=== PATIENT | male | born 1955 | race Caucasian/White ===

== ENCOUNTER 2019-01-12 21:10 | Inpatient (IN) | payer MEDICARE, MEDICAID ==
[~2019-01-12] VITALS: Ht 157.5 cm; Wt 46.7 kg
--- NOTE | 2019-01-12 21:36 | NUR ---
pt arrived by ems. darden in place on arrival. per report, pt's status has been changed from dnr to full code. awaiting son's arrival to confirm code status change.
--- NOTE | 2019-01-12 21:53 | NUR ---
pt changed to 3 liters nc. danielson notified. pt satting at 97% on 3 liters. pt tolerating well.
--- NOTE | 2019-01-12 21:56 | NUR ---
report from other facility included that pt was agitated there, pulling out 2 ivs. pt given a total of 1.5mg of ativan around 1930. pt also given a liter bolus of ns, metoprolol and lasix. report from patience owen #[phone] at [facility].
[2019-01-12] MEDS ORDERED: FLUT1BLS3 INH (21:59)
[2019-01-12] MEDS ORDERED: CEPH-572 PO (21:59)
[2019-01-12] MEDS ORDERED: ASPI81TA52 PO (21:59)
[2019-01-12] MEDS ORDERED: IPRA3AMP9 IH (21:59)
[2019-01-12] MEDS ORDERED: ACET-2144 PO (21:59)
[2019-01-12] MEDS ORDERED: BISA10SU60 RC (21:59)
[2019-01-12] MEDS ORDERED: AMIO200T61 PO (21:59)
[2019-01-12] MEDS ORDERED: HYDR-4353 PO (22:07)
[2019-01-12] MEDS ORDERED: MULT1CAP44 PO (22:07)
[2019-01-12] MEDS ORDERED: MONT10TA24 PO (22:07)
[2019-01-12] MEDS ORDERED: HYDR-3965 PO (22:07)
[2019-01-12] MEDS ORDERED: FURO-150 PO (22:07)
[2019-01-12] MEDS ORDERED: LACT10SO PO (22:07)
[2019-01-12] MEDS ORDERED: PANT-47 PO (22:07)
[2019-01-12] MEDS ORDERED: SPIR50TA5 PO (22:08)
[2019-01-12] MEDS ORDERED: THIA100T66 PO (22:10)
[2019-01-12] MEDS ORDERED: ONDA4TAB6 PO (22:11)
--- NOTE | 2019-01-12 22:13 | NUR ---
PT ARRIVES WITH POLST FOR FULL CODE. [facility] NOTES MEDS GIVEN THERE ) : METOPROLOL 2.5 MG IV AT 1300 AND 1500; LASIX 40 MG IV @ 1500, METOPROLOL 2.5 MG IV @ 1640; ATIVAN 0.5 MG @ 1640 AND 1800; 1 LITER NS, LEVOFLOXACIN 500 MG @ 1050. PT WAS AFIB RVR AT 1000 WITH HR 135. MED REC COMPLETED. PT AWAITING HOSPITALIST.
[2019-01-12] MEDS ORDERED: mag hydrox/Alum hydrox/simeth 30ml oral suspension PO PRN (23:10)
[2019-01-12] MEDS ORDERED: acetaminophen 325mg tablet PO PRN (23:10)
[2019-01-12] MEDS ORDERED: HYDROcodone/acetaminophen 5mg/325mg tablet PO PRN (23:10)
[2019-01-12] MEDS ORDERED: morphine 2 MG/ML inj. syringe IV PRN (23:10)
[2019-01-12] MEDS ORDERED: ondansetron/PF 4mg/2ml inj IV PRN (23:10)
[2019-01-12] MEDS ORDERED: magnesium hydroxide 30ml (MOM) UD suspension PO PRN (23:10)
[2019-01-12] MEDS: dextrose 5%-1/2 normal saline 1,000 ML IV SCH (23:40)
[2019-01-12 23:58] LABS: PARTIAL THROMBOPLASTIN TIME 28 SECONDS (22-32)
[2019-01-13] VITALS (21 sets, daily range): BP systolic 93–160; BP diastolic 33–98
[2019-01-13] MEDS ORDERED: CefTRIAXone/D5W-Rocephin 1gm 50 ML IV SCH
--- NOTE | 2019-01-13 02:20 | NUR ---
Received patient report from ALISSA Can in ED.
--- NOTE | 2019-01-13 02:35 | NUR ---
Pt arrived from ED via gurney, assumed patient care.
[2019-01-13] MEDS ORDERED: albuterol 2.5 MG/3 ML nebule NEB PRN (05:05)
--- NOTE | 2019-01-13 06:22 | NUR ---
Patient report given, questions answered and plan of care reviewed with ALISSA Wasserman.
[2019-01-13 06:30] LABS: BASOPHILS # (AUTO) 0.1 X10'3 (0-0.2); BASOPHILS % (AUTO) 0.7 % (0-1); EOSINOPHILS % (AUTO) 0.4 % (0-6); HEMATOCRIT 34.5 % (42.0-52.0); HEMOGLOBIN 11.6 g/dl (14.0-17.9); LYMPHOCYTES # (AUTO) 0.5 X10'3 (1.1-4.8); MEAN CORPUSCULAR HEMOGLOBIN 32.4 PG (27.0-31.0); MEAN CORPUSCULAR HGB CONC 33.8 g/dL (33.0-36.5); MEAN CORPUSCULAR VOLUME 95.9 FL (78-98); MEAN PLATELET VOLUME 7.4 FL (7.4-10.4); MONOCYTES # (AUTO) 0.9 X10'3 (0-0.9); MONOCYTES % (AUTO) 11.5 % (2-12); NEUTROPHILS # (AUTO) 6.1 X10'3 (1.8-7.7); NEUTROPHILS % (AUTO) 81.4 % (42-75); PLATELET COUNT 78 X10'3 (140-440); RED BLOOD COUNT 3.59 X10'6 (4.70-6.10); RED CELL DISTRIBUTION WIDTH 15.6 % (11.5-14.5); WHITE BLOOD COUNT 7.5 X10'3 (4.5-11.0)
[2019-01-13] MEDS ORDERED: ipratropium/albuterol 3ml nebule IH PRN (06:30)
[2019-01-13] MEDS ORDERED: HYDROcodone/acetaminophen 5mg/325mg tablet PO PRN (06:30)
[2019-01-13] MEDS ORDERED: bisacodyl 10mg suppository rectal RC PRN (06:30)
[2019-01-13] MEDS ORDERED: HYDROcodone/acetaminophen 10/325mg tab PO PRN (06:30)
[2019-01-13 06:48] LABS: ALANINE AMINOTRANSFERASE 52 U/L (12-78); ALBUMIN 2.3 G/DL (3.4-5.0); ALBUMIN/GLOBULIN RATIO 0.5 (1.1-1.5); ALKALINE PHOSPHATASE 114 IU/L (46-116); ANION GAP 6 (8-16); ASPARTATE AMINO TRANSFERASE 78 U/L (10-37); BILIRUBIN,TOTAL 1.2 MG/DL (0.1-1.0); BLOOD UREA NITROGEN 30 MG/DL (7-18); BUN/CREATININE RATIO 34.5 (5.4-32.0); CALCIUM 9.8 MG/DL (8.5-10.1); CHLORIDE 106 MMOL/L (99-107); CREATININE 0.87 MG/DL (0.60-1.10); GLUCOSE 137 MG/DL (70-104); POTASSIUM 4.1 MMOL/L (3.5-5.1); SODIUM 141 MMOL/L (135-145); TOTAL CARBON DIOXIDE 28.6 MMOL/L (24-32); TOTAL PROTEIN 6.6 G/DL (6.4-8.2); eGFR 88 ML/MIN
[2019-01-13] MEDS: aspirin 81mg tablet.DR PO SCH (08:00)
[2019-01-13] MEDS: budesonide 0.5mg/2ml UD nebule IH SCH ×2 (08:25→20:04)
[2019-01-13] MEDS: albuterol 2.5 MG/3 ML nebule NEB SCH ×3 (08:25→20:04)
--- NOTE | 2019-01-13 10:28 | NUR ---
Page Sent PAGER ID: [phone] MESSAGE: PT IN ROOM 4021A CANDEKIREGAN CONVERTED TO AFIB WITH RATE IN THE 140-150S. BP 93/50. PLEASE ADVISE. THANK YOU. ODILIA MAXWELL [id number]
[2019-01-13] MEDS ORDERED: digoxin 250mcg/ml 2ml ampule IV STA (10:43)
[2019-01-13] MEDS ORDERED: digoxin 250mcg/ml 2ml ampule IV ONE ×2 (10:50→11:10)
[2019-01-13] MEDS: furosemide 20MG tablet PO SCH (11:18)
[2019-01-13] MEDS: lactulose 20gm/30ml cup PO SCH ×3 (11:18→21:00)
[2019-01-13] MEDS: spironolactone 50 MG tablet PO SCH (11:18)
[2019-01-13] MEDS: pantoprazole 40mg Tablet.DR PO SCH (11:18)
[2019-01-13] MEDS: amiodarone 200mg tablet PO SCH (11:18)
[2019-01-13] MEDS: multivitamins, therapeutics tablet PO SCH (11:19)
[2019-01-13] MEDS: dextrose 5%-1/2 normal saline 1,000 ML IV SCH ×2 (11:21→23:07)
[2019-01-13 11:26] LABS: ABG BASE EXCESS 1.3 mmol/L (-2.0-3.0); ABG HCO3 23.9 mmol/L (22.0-26.0); ABG OXYGEN SATURATION 93.2 % (95-98); ABG PCO2 (T) 31.5 mmHg (35.0-45.0); ABG PH (T) 7.498 (7.350-7.450); ABG PO2 (T) 67.1 mmHg (83-108); FCOHb 0.6 % (0.5-1.5); FMetHb 0.3 % (0.3-1.12); FO2Hb 92.4 % (94-100); TOTAL HEMOGLOBIN 12.1 G/dl (14.0-17.9)
--- NOTE | 2019-01-13 11:36 | NUR ---
DR HI ORDERED TWO DOSES OF DIGOXIN 125 MCG. MEDICATION GIVEN. PATIENT STILL IN AFIB RATE OF 150S. AWARE. TRANSFER ORDERS TO TELE RM [id number].
--- NOTE | 2019-01-13 12:12 | NUR ---
Patient arrived on the floor via bed. Patient was transferred onto new bed. Patient has a tele in place, PIV with D51/2NS at 20ml/hr, mittens on to both hands, O2 at 3L NC,SpO2 onto right earlobe. Patient has had his v/s completed, been oriented to the room, and call light within reach. Patient is confused and mumbles without clear speech. Will continue to monitor patient.
--- NOTE | 2019-01-13 12:24 | NUR ---
Called Dr. Soto regarding anson woods. to place orders.
--- NOTE | 2019-01-13 12:34 | NUR ---
Dr. Soto placed orders for amio without a bolus. Called to clarify and MD does not want a bolus at this time. Will administer as ordered. Will continue to monitor patient.
[2019-01-13] MEDS: amiodarone/D5 360MG/200ML BAG 200 ML IV SCH ×2 (12:52→19:06)
[2019-01-13] MEDS: VANCOMYCIN 750MG IV in NS 250 ML IV SCH (14:33)
[2019-01-13 16:42] LABS: GLUCOSE,BODY FLUID 119 MG/DL; LDH,BODY FLUID 78 U/L
[2019-01-13 16:56] LABS: TOTAL PROTEIN,BODY FLUID < 2.0 G/DL
[2019-01-13 17:04] LABS: BF RBC COUNT 820 /CU MM; BF WBC COUNT 465 /CU MM (0-1000); BFAPPEAR HAZY; BFCOLOR YELLOW; BFVOLUME 45 ML; LYMPHOCYTES,BODY FLUID 10 %; MONOCYTES,BODY FLUID 52 %; NEUTROPHILS,BODY FLUID 38 %
[2019-01-13 17:05] LABS: BF MESOTHELIAL CELLS MODERATE
[2019-01-13 17:06] LABS: OTHER CELLS,BODY FLUID MACROPHAGES
--- NOTE | 2019-01-13 17:59 | NUR ---
Orientee documentation: I have reviewed and agree with all interventions, assessments performed and documented by Lisa MAXWELL. Orientee Medication Administration: For this medication-pass time frame, all medication were reviewed, dispensed, administered and documented per hospital policy by Lisa MAXWELL.
--- NOTE | 2019-01-13 18:35 | NUR ---
Problems reprioritized. Patient report given, questions answered & plan of care reviewed with Eduar MAXWELL and Lul MAXWELL. Patient confused, no change.
--- NOTE | 2019-01-13 18:44 | NUR ---
Patient in room PCU 3013. I have received report from Yris MAXWELL and Lisa MAXWELL and had the opportunity to ask questions and assume patient care.
[2019-01-13] MEDS: piperacillin/tazo 3.375gm/50ml 50 ML IV SCH (19:07)
[2019-01-13] MEDS: montelukast 10mg tablet PO SCH (21:00)
--- NOTE | 2019-01-13 21:50 | NUR ---
Call to Dr. Chaney, informed him of pts NPO status, darden catheter from outside facility, pts neurologic condition, and respiratory status. Received order from Dr. Chaney: NT suction, ABG, hold all PO medications, and okay to continue darden catheter.
[2019-01-13 22:45] LABS: ABG BASE EXCESS 1.8 mmol/L (-2.0-3.0); ABG HCO3 25.1 mmol/L (22.0-26.0); ABG OXYGEN SATURATION 92.8 % (95-98); ABG PCO2 (T) 34.3 mmHg (35.0-45.0); ABG PH (T) 7.481 (7.350-7.450); ABG PO2 (T) 63.2 mmHg (83-108); FCOHb 0.4 % (0.5-1.5); FLOW 3 L/min; FO2Hb 92.4 % (94-100); PATIENT TEMPERATURE 36.7; RESPIRATORY RATE (OBSERVED) 26 b/min; TOTAL HEMOGLOBIN 12.3 G/dl (14.0-17.9)
[2019-01-14] VITALS (13 sets, daily range): BP systolic 127–159; BP diastolic 53–90
[2019-01-14] MEDS: VANCOMYCIN 750MG IV in NS 250 ML IV SCH ×3 (00:17→22:05)
[2019-01-14] MEDS: piperacillin/tazo 3.375gm/50ml 50 ML IV SCH ×3 (02:26→16:15)
[2019-01-14] MEDS: amiodarone/D5 360MG/200ML BAG 200 ML IV SCH ×4 (04:17→16:42)
--- NOTE | 2019-01-14 06:08 | NUR ---
Problems reprioritized. Patient report given, questions answered & plan of care reviewed with Yris MAXWELL and Lisa MAXWELL.
--- NOTE | 2019-01-14 06:08 | NUR ---
Patient in room PCU 3013. I have received report from Mahendra RN and Lul RN, and had the opportunity to ask questions and assume patient care. Patient is awake at this time with amio and IVF infusing as ordered. Will continue to monitor patient.
[2019-01-14 06:22] LABS: ALANINE AMINOTRANSFERASE 43 U/L (12-78); ALBUMIN 2.2 G/DL (3.4-5.0); ALBUMIN/GLOBULIN RATIO 0.5 (1.1-1.5); ALKALINE PHOSPHATASE 116 IU/L (46-116); ANION GAP 9 (8-16); ASPARTATE AMINO TRANSFERASE 73 U/L (10-37); BILIRUBIN,TOTAL 1.2 MG/DL (0.1-1.0); BLOOD UREA NITROGEN 25 MG/DL (7-18); BUN/CREATININE RATIO 36.2 (5.4-32.0); CALCIUM 8.2 MG/DL (8.5-10.1); CHLORIDE 107 MMOL/L (99-107); CREATININE 0.69 MG/DL (0.60-1.10); GLUCOSE 118 MG/DL (70-104); POTASSIUM 3.9 MMOL/L (3.5-5.1); SODIUM 140 MMOL/L (135-145); TOTAL CARBON DIOXIDE 23.9 MMOL/L (24-32); TOTAL PROTEIN 6.6 G/DL (6.4-8.2); eGFR > 90 ML/MIN
--- NOTE | 2019-01-14 06:24 | NUR ---
Orientee documentation: I have reviewed and agree with all interventions, assessments performed and documented by Lul MAXWELL.
[2019-01-14] MEDS: budesonide 0.5mg/2ml UD nebule IH SCH ×2 (06:54→19:15)
[2019-01-14] MEDS: albuterol 2.5 MG/3 ML nebule NEB SCH ×4 (06:54→19:15)
[2019-01-14 07:52] LABS: BASOPHILS % (AUTO) 0.2 % (0-1); EOSINOPHILS # (AUTO) 0.1 X10'3 (0-0.9); EOSINOPHILS % (AUTO) 0.6 % (0-6); HEMATOCRIT 35.2 % (42.0-52.0); HEMOGLOBIN 11.7 g/dl (14.0-17.9); LYMPHOCYTES # (AUTO) 0.5 X10'3 (1.1-4.8); LYMPHOCYTES % (AUTO) 6.3 % (21-51); MEAN CORPUSCULAR HEMOGLOBIN 31.9 PG (27.0-31.0); MEAN CORPUSCULAR HGB CONC 33.3 g/dL (33.0-36.5); MEAN CORPUSCULAR VOLUME 95.9 FL (78-98); MEAN PLATELET VOLUME 7.2 FL (7.4-10.4); MONOCYTES # (AUTO) 0.8 X10'3 (0-0.9); MONOCYTES % (AUTO) 9.2 % (2-12); NEUTROPHILS # (AUTO) 7.2 X10'3 (1.8-7.7); NEUTROPHILS % (AUTO) 83.7 % (42-75); PLATELET COUNT 95 X10'3 (140-440); RED BLOOD COUNT 3.67 X10'6 (4.70-6.10); RED CELL DISTRIBUTION WIDTH 15.6 % (11.5-14.5); WHITE BLOOD COUNT 8.6 X10'3 (4.5-11.0)
[2019-01-14] MEDS: lactulose 20gm/30ml cup PO SCH ×3 (08:00→22:01)
[2019-01-14] MEDS: aspirin 81mg tablet.DR PO SCH (08:00)
[2019-01-14] MEDS: amiodarone 200mg tablet PO SCH (08:00)
[2019-01-14] MEDS: pantoprazole 40mg Tablet.DR PO SCH (08:00)
[2019-01-14] MEDS: multivitamins, therapeutics tablet PO SCH (08:00)
[2019-01-14] MEDS: furosemide 20MG tablet PO SCH (08:00)
[2019-01-14] MEDS: spironolactone 50 MG tablet PO SCH (08:00)
[2019-01-14] MEDS: dextrose 5%-1/2 normal saline 1,000 ML IV SCH ×3 (09:10→19:53)
--- NOTE | 2019-01-14 10:58 | NUR ---
Talked with Dr. Soto regarding patients breathing (gurgling, O2 WNL), no gag reflux with deep suctioning. New order: CXR single view. Will continue to monitor the patient.
--- NOTE | 2019-01-14 15:25 | NUR ---
Malnutrition consult: Pt admit w/ PNA possibly aspiration-related, s/p R thoracentesis for large pleural effusion -1900ml. Pt remains NPO per SP BSS w/ ALOC AOx0 currently; possibly dementia per EMR. Current scaled wt good given age and no prior wt hx; pt not appropriate for hx at this time. Sumeet 11; no edema/wounds. At this time severe weakness only malnutrition criteria and pt does not meet minimum malnutrition criteria at this time. Will continue to monitor. Addendum: 01/14/19 at [address] Amended: Links added.
--- NOTE | 2019-01-14 18:10 | NUR ---
Problems reprioritized. Patient report given, questions answered & plan of care reviewed with Mahendra MAXWELL and Lul MAXWELL. Patient has no complaints at this time.
--- NOTE | 2019-01-14 18:24 | NUR ---
Patient in room PCU 3013. I have received report from Yris MAXWELL and Lisa MAXWELL and had the opportunity to ask questions and assume patient care.
[2019-01-14] MEDS: montelukast 10mg tablet PO SCH (22:01)
[2019-01-14] MEDS ORDERED: VANCOMYCIN LEVEL IV ONE (22:30)
[2019-01-15] VITALS (20 sets, daily range): BP systolic 94–197; BP diastolic 49–91
[2019-01-15] MEDS: piperacillin/tazo 3.375gm/50ml 50 ML IV SCH ×3 (00:10→17:20)
[2019-01-15 02:10] LABS: BASOPHILS # (AUTO) 0.1 X10'3 (0-0.2); BASOPHILS % (AUTO) 0.7 % (0-1); EOSINOPHILS # (AUTO) 0.1 X10'3 (0-0.9); HEMOGLOBIN 12.3 g/dl (14.0-17.9); LYMPHOCYTES # (AUTO) 0.5 X10'3 (1.1-4.8); LYMPHOCYTES % (AUTO) 3.9 % (21-51); MONOCYTES # (AUTO) 1.3 X10'3 (0-0.9); MONOCYTES % (AUTO) 10.6 % (2-12)
[2019-01-15 02:12] LABS: EOSINOPHILS % (AUTO) 0.6 % (0-6); HEMATOCRIT 36.5 % (42.0-52.0); MEAN CORPUSCULAR HEMOGLOBIN 31.8 PG (27.0-31.0); MEAN CORPUSCULAR HGB CONC 33.7 g/dL (33.0-36.5); MEAN CORPUSCULAR VOLUME 94.2 FL (78-98); NEUTROPHILS # (AUTO) 10.6 X10'3 (1.8-7.7); NEUTROPHILS % (AUTO) 84.2 % (42-75); RED BLOOD COUNT 3.87 X10'6 (4.70-6.10); RED CELL DISTRIBUTION WIDTH 15.5 % (11.5-14.5); WHITE BLOOD COUNT 12.6 X10'3 (4.5-11.0)
[2019-01-15 02:18] LABS: ALANINE AMINOTRANSFERASE 42 U/L (12-78); ALBUMIN 2.2 G/DL (3.4-5.0); ALBUMIN/GLOBULIN RATIO 0.5 (1.1-1.5); ALKALINE PHOSPHATASE 119 IU/L (46-116); ANION GAP 6 (8-16); ASPARTATE AMINO TRANSFERASE 68 U/L (10-37); BILIRUBIN,TOTAL 1.4 MG/DL (0.1-1.0); BLOOD UREA NITROGEN 22 MG/DL (7-18); BUN/CREATININE RATIO 28.2 (5.4-32.0); CALCIUM 8.6 MG/DL (8.5-10.1); CHLORIDE 106 MMOL/L (99-107); CREATININE 0.78 MG/DL (0.60-1.10); GLUCOSE 115 MG/DL (70-104); POTASSIUM 3.6 MMOL/L (3.5-5.1); SODIUM 138 MMOL/L (135-145); TOTAL CARBON DIOXIDE 26.4 MMOL/L (24-32); TOTAL PROTEIN 6.7 G/DL (6.4-8.2); eGFR > 90 ML/MIN
[2019-01-15 03:17] LABS: MEAN PLATELET VOLUME 7.1 FL (7.4-10.4); PLATELET COUNT 113 X10'3 (140-440)
[2019-01-15] MEDS: amiodarone/D5 360MG/200ML BAG 200 ML IV SCH ×4 (04:35→15:27)
--- NOTE | 2019-01-15 05:54 | NUR ---
Orientee documentation: I have reviewed and agree with all interventions, assessments performed and documented by Lul MAXWELL.
[2019-01-15] MEDS: albuterol 2.5 MG/3 ML nebule NEB SCH ×4 (07:00→19:16)
[2019-01-15] MEDS: aspirin 81mg tablet.DR PO SCH (08:00)
[2019-01-15] MEDS: multivitamins, therapeutics tablet PO SCH (08:00)
[2019-01-15] MEDS: spironolactone 50 MG tablet PO SCH (08:00)
[2019-01-15] MEDS: furosemide 20MG tablet PO SCH (08:00)
[2019-01-15] MEDS: budesonide 0.5mg/2ml UD nebule IH SCH ×2 (08:04→19:16)
[2019-01-15] MEDS: dextrose 5%-1/2 normal saline 1,000 ML IV SCH (08:07)
--- NOTE | 2019-01-15 09:40 | NUR ---
Called and spoke with Dr. Soto. Informed her of the patients ineffective breathing pattern (RR 27-32), labored/grunting breathing, patients pitting edema of 3+ to bilateral feet, 2+ right hand, and edema to the right hand. Informed her today as well as yesterday of the patients absent gag reflex. New order for ABG and BiPap. Paged RT.
[2019-01-15] MEDS ORDERED: potassium Cl 20 mEq/100mL bag IV ONE (09:50)
[2019-01-15] MEDS ORDERED: furosemide 40mg/4ml inj IV ONE ×2 (09:50→12:25)
--- NOTE | 2019-01-15 10:00 | NUR ---
Spoke with Graciela Palm NP regarding patients condition. New order for Lasix 40 mg PIV now, stop the gtt and K+ PIV for the patient given. Will continue to monitor the patient.
[2019-01-15] MEDS ORDERED: potassium Cl 20mEq/100mL bag 100 ML IV ONE (10:05)
[2019-01-15 10:06] LABS: ABG BASE EXCESS 0.2 mmol/L (-2.0-3.0); ABG HCO3 25.8 mmol/L (22.0-26.0); ABG OXYGEN SATURATION 95.1 % (95-98); ABG PCO2 (T) 45.3 mmHg (35.0-45.0); ABG PH (T) 7.373 (7.350-7.450); ABG PO2 (T) 79.7 mmHg (83-108); FCOHb 0.3 % (0.5-1.5); FLOW 4 L/min; FMetHb 0.1 % (0.3-1.12); FO2Hb 94.7 % (94-100); TOTAL HEMOGLOBIN 12.9 G/dl (14.0-17.9)
[2019-01-15] MEDS ORDERED: potassium CL 10mEq/100ml bag 100 ML IV ONE ×2 (10:10→11:30)
--- NOTE | 2019-01-15 10:20 | NUR ---
Dr. Soto on the floor and has had the opportunity to examine the patient. She has requested the medical records from [facility] and [facility]. Dr. Soto to talk with the patient. New order DC IVF.
[2019-01-15] MEDS ORDERED: VANCOMYCIN LEVEL IV ONE (10:30)
--- NOTE | 2019-01-15 11:00 | NUR ---
Medical records have been received and given to Dr. Soto.
--- NOTE | 2019-01-15 12:15 | NUR ---
Problems reprioritized. Patient report given, questions answered & plan of care reviewed with Alexis, RN in CICU. Patient to be transfered to the CICU once the room is ready. Dr. Olson at the patients bedside, discussing the patients care with Oskar (son of patient.)
[2019-01-15] MEDS: VANCOMYCIN 750MG IV in NS 250 ML IV SCH (12:27)
--- NOTE | 2019-01-15 12:50 | NUR ---
Pt transferred from PCU for resp distress. Pt in ICU bed & on monitor. Amioadrone & IVABX running. Pt placed on bipap at 30% FiO2.
--- NOTE | 2019-01-15 13:03 | NUR ---
received pt from PCU placed on bedside monitor, on bipap son at bedside
--- NOTE | 2019-01-15 14:30 | NUR ---
ENGINE ROOM HELPER did not administer IV K+. Pt does not have a PICC line for administration
[2019-01-15] MEDS ORDERED: digoxin 250mcg/ml 2ml ampule IV ONE (14:45)
[2019-01-15] MEDS: diltiazem-NS 100mg/100ml 100 ML IV SCH (15:35)
--- NOTE | 2019-01-15 18:30 | NUR ---
Patient in room CICU 2006. I have received report from Art RN, and had the opportunity to ask questions and assume patient care.
[2019-01-15] MEDS: lactobacillus rhamnosus 10,000 MMU CELLS/CAPSULE PO SCH (20:00)
[2019-01-15] MEDS: montelukast 10mg tablet PO SCH (21:00)
--- NOTE | 2019-01-15 21:25 | NUR ---
Cardizem gtt turned off d/t decreasing BP/ PACKAGE CHECKER Helen made aware. Will continue to monitor.
[2019-01-15] MEDS: vancomycin/NS 1 GM ADD-VANTAGE 250 ML IV SCH (22:51)
[2019-01-16] VITALS (25 sets, daily range): BP systolic 97–151; BP diastolic 49–90
[2019-01-16] MEDS: piperacillin/tazo 3.375gm/50ml 50 ML IV SCH ×3 (00:42→17:24)
[2019-01-16] MEDS: amiodarone/D5 360MG/200ML BAG 200 ML IV SCH ×2 (03:52→17:16)
--- NOTE | 2019-01-16 04:30 | NUR ---
PT blood sugars have been trending down. DONAVAN Cervantes notified. Order received to start D10 @ 30ml/hr. Will continue to monitor.
[2019-01-16] MEDS: Dextrose 10%-water IV solution 1,000 ML IV SCH (04:32)
[2019-01-16 04:44] LABS: BASOPHILS % (AUTO) 0.2 % (0-1); EOSINOPHILS % (AUTO) 0.1 % (0-6); HEMATOCRIT 38.2 % (42.0-52.0); HEMOGLOBIN 12.7 g/dl (14.0-17.9); LYMPHOCYTES # (AUTO) 0.5 X10'3 (1.1-4.8); LYMPHOCYTES % (AUTO) 3.6 % (21-51); MEAN CORPUSCULAR HEMOGLOBIN 31.5 PG (27.0-31.0); MEAN CORPUSCULAR HGB CONC 33.3 g/dL (33.0-36.5); MEAN CORPUSCULAR VOLUME 94.6 FL (78-98); MONOCYTES # (AUTO) 1.4 X10'3 (0-0.9); MONOCYTES % (AUTO) 10.6 % (2-12); NEUTROPHILS # (AUTO) 11.2 X10'3 (1.8-7.7); NEUTROPHILS % (AUTO) 85.5 % (42-75); PLATELET COUNT 129 X10'3 (140-440); RED BLOOD COUNT 4.04 X10'6 (4.70-6.10); RED CELL DISTRIBUTION WIDTH 15.7 % (11.5-14.5); WHITE BLOOD COUNT 13.1 X10'3 (4.5-11.0)
[2019-01-16 05:08] LABS: ALANINE AMINOTRANSFERASE 36 U/L (12-78); ALBUMIN 2.2 G/DL (3.4-5.0); ALBUMIN/GLOBULIN RATIO 0.5 (1.1-1.5); ALKALINE PHOSPHATASE 119 IU/L (46-116); ANION GAP 8 (8-16); ASPARTATE AMINO TRANSFERASE 63 U/L (10-37); BILIRUBIN,TOTAL 1.5 MG/DL (0.1-1.0); BLOOD UREA NITROGEN 28 MG/DL (7-18); BUN/CREATININE RATIO 34.6 (5.4-32.0); CALCIUM 8.6 MG/DL (8.5-10.1); CHLORIDE 106 MMOL/L (99-107); CREATININE 0.81 MG/DL (0.60-1.10); GLUCOSE 87 MG/DL (70-104); POTASSIUM 3.3 MMOL/L (3.5-5.1); SODIUM 142 MMOL/L (135-145); TOTAL CARBON DIOXIDE 28.4 MMOL/L (24-32); TOTAL PROTEIN 6.7 G/DL (6.4-8.2); eGFR > 90 ML/MIN
--- NOTE | 2019-01-16 06:40 | NUR ---
Problems reprioritized. Patient report given, questions answered & plan of care reviewed with Tamiko MAXWELL.
--- NOTE | 2019-01-16 07:00 | NUR ---
Patient in room [facility] 2007. I have received report from ALISSA Henson and had the opportunity to ask questions and assume patient care. Addendum: 01/16/19 at 0707 by Tamiko Lerma RN Amended: Links added.
[2019-01-16] MEDS: albuterol 2.5 MG/3 ML nebule NEB SCH ×2 (07:58→11:00)
[2019-01-16] MEDS: budesonide 0.5mg/2ml UD nebule IH SCH ×2 (07:58→21:04)
[2019-01-16] MEDS: lactobacillus rhamnosus 10,000 MMU CELLS/CAPSULE PO SCH (08:00)
[2019-01-16] MEDS: aspirin 81mg tablet.DR PO SCH (08:00)
[2019-01-16] MEDS: multivitamins, therapeutics tablet PO SCH (08:00)
[2019-01-16] MEDS: spironolactone 50 MG tablet PO SCH (08:00)
[2019-01-16] MEDS: furosemide 20MG tablet PO SCH (08:00)
[2019-01-16 09:30] LABS: ABG HCO3 26.9 mmol/L (22.0-26.0); ABG OXYGEN SATURATION 94.9 % (95-98); ABG PCO2 (T) 34.5 mmHg (35.0-45.0); ABG PH (T) 7.509 (7.350-7.450); ABG PO2 (T) 68.1 mmHg (83-108); ALLEN'S TEST Positive; FCOHb 0.3 % (0.5-1.5); FMetHb 0.1 % (0.3-1.12); FO2Hb 94.5 % (94-100); MINUTE VOLUME 9 L/min; RESPIRATORY RATE 18 b/min; RESPIRATORY RATE (OBSERVED) 26 b/min; TOTAL HEMOGLOBIN 13.1 G/dl (14.0-17.9)
[2019-01-16] MEDS: pantoprazole 40 MG vial IV SCH ×2 (09:59→10:00)
[2019-01-16] MEDS ORDERED: acetaminophen 325mg/10.15ml oral unit dose solution CORPAK PRN (13:16)
[2019-01-16] MEDS ORDERED: mag hydrox/Alum hydrox/simeth 30ml oral suspension CORPAK PRN (13:18)
[2019-01-16] MEDS ORDERED: magnesium hydroxide 30ml (MOM) UD suspension CORPAK PRN (13:20)
[2019-01-16] MEDS: diltiazem-NS 100mg/100ml 100 ML IV SCH (14:09)
[2019-01-16] MEDS: vancomycin/NS 1 GM ADD-VANTAGE 250 ML IV SCH ×2 (14:11→22:41)
[2019-01-16] MEDS: ipratropium/albuterol 3ml nebule NEB SCH ×2 (15:21→21:04)
--- NOTE | 2019-01-16 16:38 | NUR ---
TF consult (01/16): Pt is awake, wants to eat, breathing better, the right lung is opacified noted per MD. Pt failed BSS today, speech therapist rec NPO due to difficulty coordinating breathing and swallowing, may need alternative nutrition. Pt getting corpak placed rec. below with Jevity 1.2 Duy at goal rate of 50ml/hr once corpak is confirmed in appropriate location.Pt is going to receive MVI,thiamine,and folic acid through corpak due to alcoholic hx. LBM 01/15.Will continue to monitor. Malnutrition consult: Pt admit w/ PNA possibly aspiration-related, s/p R thoracentesis for large pleural effusion -1900ml. Pt remains NPO per SP BSS w/ ALOC AOx0 currently; possibly dementia per EMR. Current scaled wt good given age and no prior wt hx; pt not appropriate for hx at this time. Sumeet 11; no edema/wounds. At this time severe weakness only malnutrition criteria and pt does not meet minimum malnutrition criteria at this time. Will continue to monitor. Recommendations: 1. Corpak using Javity 1.2 Duy at goal rate of 50ml/hr; to provide 1200ml/hr, 1440kcal,972ml free water,and 67g protein. 2. Water flushes per MD due to ascites 3. Daily wt; Prealbumin / 4. Rec. thiamine and folic acid due to hx of alcoholism Addendum: 01/16/19 at [address] Amended: Links added. Addendum: 01/16/19 at [address] RD agree with patient note
--- NOTE | 2019-01-16 17:08 | NUR ---
Discussed with Dr Olson about a chest tube being a contraindication for MetaNeb due to the pulmonary leakage. He understood the reasoning but encouraged and recommended we try to use the MetaNeb to see if we can mobilize the secretions the pt has. I also informed him that the pt is not able to produce a strong cough so we have been needing to NT suction the pt frequently. Dr Olson asked that we use the MetaNeb to help the pt rather than having to intubate the pt in order to bronch him.
[2019-01-16] MEDS: montelukast 10mg tablet CORPAK SCH (20:37)
[2019-01-16] MEDS: lactobacillus rhamnosus 10,000 MMU CELLS/CAPSULE CORPAK SCH (20:40)
[2019-01-16] MEDS ORDERED: POTASSIUM BICARB 20meq eff tab 20 MEQ TABLET.EFF PO PRN ×2 (22:35)
[2019-01-16] MEDS ORDERED: magnesium 4gm in 100ml NS 100 ML IV PRN (22:35)
[2019-01-16] MEDS ORDERED: potassium CL 10mEq/100ml bag 100 ML IV PRN (22:35)
[2019-01-16] MEDS ORDERED: magnesium 2GM in 50ml NS 50 ML IV PRN (22:35)
[2019-01-16] MEDS ORDERED: POTASSIUM BICARB 20meq eff tab 20 MEQ TABLET.EFF CORPAK PRN (22:37)
[2019-01-16] MEDS: POTASSIUM BICARB 20meq eff tab 20 MEQ TABLET.EFF CORPAK PRN (23:03)
[2019-01-17] VITALS (24 sets, daily range): BP systolic 93–134; BP diastolic 40–78
[2019-01-17] MEDS: ipratropium/albuterol 3ml nebule NEB SCH ×7 (00:11→22:33)
[2019-01-17] MEDS: piperacillin/tazo 3.375gm/50ml 50 ML IV SCH ×3 (01:12→17:25)
[2019-01-17] MEDS: amiodarone/D5 360MG/200ML BAG 200 ML IV SCH ×5 (03:53→19:33)
[2019-01-17] MEDS: POTASSIUM BICARB 20meq eff tab 20 MEQ TABLET.EFF CORPAK PRN ×2 (03:54→09:17)
[2019-01-17 04:20] LABS: BASOPHILS % (AUTO) 0.2 % (0-1); EOSINOPHILS % (AUTO) 0.4 % (0-6); HEMATOCRIT 39.8 % (42.0-52.0); HEMOGLOBIN 13.3 g/dl (14.0-17.9); LYMPHOCYTES # (AUTO) 0.5 X10'3 (1.1-4.8); LYMPHOCYTES % (AUTO) 4.6 % (21-51); MEAN CORPUSCULAR HEMOGLOBIN 31.4 PG (27.0-31.0); MEAN CORPUSCULAR HGB CONC 33.3 g/dL (33.0-36.5); MEAN CORPUSCULAR VOLUME 94.1 FL (78-98); MEAN PLATELET VOLUME 7.1 FL (7.4-10.4); MONOCYTES # (AUTO) 1.6 X10'3 (0-0.9); MONOCYTES % (AUTO) 14.2 % (2-12); NEUTROPHILS % (AUTO) 80.6 % (42-75); PLATELET COUNT 106 X10'3 (140-440); RED BLOOD COUNT 4.23 X10'6 (4.70-6.10); RED CELL DISTRIBUTION WIDTH 15.6 % (11.5-14.5); WHITE BLOOD COUNT 11.2 X10'3 (4.5-11.0)
[2019-01-17 04:46] LABS: ALANINE AMINOTRANSFERASE 34 U/L (12-78); ALBUMIN/GLOBULIN RATIO 0.4 (1.1-1.5); ALKALINE PHOSPHATASE 118 IU/L (46-116); ANION GAP 5 (8-16); ASPARTATE AMINO TRANSFERASE 59 U/L (10-37); BILIRUBIN,TOTAL 1.2 MG/DL (0.1-1.0); BLOOD UREA NITROGEN 30 MG/DL (7-18); BUN/CREATININE RATIO 36.6 (5.4-32.0); CALCIUM 9.2 MG/DL (8.5-10.1); CHLORIDE 106 MMOL/L (99-107); CREATININE 0.82 MG/DL (0.60-1.10); GLUCOSE 126 MG/DL (70-104); MAGNESIUM 1.8 MG/DL (1.5-2.4); POTASSIUM 3.4 MMOL/L (3.5-5.1); SODIUM 143 MMOL/L (135-145); TOTAL CARBON DIOXIDE 31.9 MMOL/L (24-32); TOTAL PROTEIN 6.5 G/DL (6.4-8.2); eGFR > 90 ML/MIN
--- NOTE | 2019-01-17 06:00 | NUR ---
Preceptee documentation: I have reviewed and agree with all interventions, assessments performed and documented by ALISSA Carroll .
[2019-01-17] MEDS: pantoprazole 40 MG vial IV SCH (08:24)
[2019-01-17] MEDS: aspirin 81mg tab.chew CORPAK SCH (08:25)
[2019-01-17] MEDS: MULTIVIT-MIN/FERROUS GLUCONATE 9 MG/15 ML LIQUID CORPAK SCH (08:25)
[2019-01-17] MEDS: lactobacillus rhamnosus 10,000 MMU CELLS/CAPSULE CORPAK SCH ×2 (08:26→20:21)
[2019-01-17] MEDS: furosemide 40 MG/4 ML oral solution UD cup CORPAK SCH (08:26)
[2019-01-17] MEDS: spironolactone 50 MG tablet CORPAK SCH (08:26)
[2019-01-17] MEDS: diltiazem-NS 100mg/100ml 100 ML IV SCH (08:31)
[2019-01-17] MEDS: budesonide 0.5mg/2ml UD nebule IH SCH ×2 (08:34→18:44)
[2019-01-17] MEDS: K and/or MAG REPLACEMENT MC SCH (08:43)
[2019-01-17] MEDS ORDERED: VANCOMYCIN LEVEL IV ONE (10:30)
[2019-01-17] MEDS ORDERED: folic acid 1mg tablet CORPAK SCH ×2 (11:28→11:35)
[2019-01-17 11:47] LABS: VANCOMYCIN,TROUGH 17.4 UG/ML (6.0-14.0)
[2019-01-17 11:52] LABS: POTASSIUM 4.6 MMOL/L (3.5-5.1)
[2019-01-17 11:55] LABS: PHOSPHORUS 1.1 MG/DL (2.3-4.5)
[2019-01-17] MEDS ORDERED: sodium phosphate inj. 30 MMOL in dextrose 5%-water 250 ML IV PRN (12:20)
[2019-01-17] MEDS ORDERED: sodium phosphate inj. 15 MMOL in dextrose 5%-water 150 ML IV PRN (12:20)
[2019-01-17] MEDS ORDERED: sodium phosphate inj. 30 MMOL in dextrose 5%-water 250 ML IV ONE (12:20)
[2019-01-17] MEDS: vancomycin/NS 1 GM ADD-VANTAGE 250 ML IV SCH ×2 (13:00→23:58)
[2019-01-17] MEDS ORDERED: iohexol 300mg/ml 100ml inj. ONE (13:08)
--- NOTE | 2019-01-17 15:32 | NUR ---
PRESSURE ULCER EDUCATION: DEFINITION: A pressure ulcer is an area of skin that breaks down when you stay in one position too long. The constant pressure against the skin reduces the blood flow to that area and the affected tissue dies. CAUSES: "Being bedridden or in a wheelchair "Fragile skin "Having a chronic condition, such as diabetes or vascular disease "Inability to move certain parts of your body without assistance "Older age "Incontinence of urine or stool SYMPTOMS: "A reddened area that DOES NOT turn white when pressed on - this can be the beginning of a pressure ulcer "A blister, deep sore or a crater - these can be advanced pressure ulcers FIRST AID: "Relieve the pressure on this area "Keep the area clean and dry "Call your primary doctor if you see any of the above symptoms "DO NOT massage the area "DO NOT use a donut shaped or ring shaped pillow- these actually interfere with the blood flow and cause complications PREVENTION: "Check for pressure ulcers everyday "Change position at least every two hours to relieve pressure "Use items that help relieve pressure- pillows, sheepskin, foam padding, and powders. "Keep skin clean and dry "Eat healthy well balanced meals "Exercise daily IF YOU SEE ANY OF THESE SYMPTOMS WHILE IN THE HOSPITAL - TELL YOUR NURSE IMMEDIATELY. IF YOU SEE ANY OF THESE SYMPTOMS WHILE AT HOME OR HAVE ANY QUESTIONS OR CONCERNS ABOUT PRESSURE ULCERS - CALL YOUR PRIMARY DOCTOR IMMEDIATELY. Addendum: 01/17/19 at 1532 by Carlita Darling RN Amended: Links added.
[2019-01-17] MEDS: thiamine 100mg tablet CORPAK SCH (17:24)
[2019-01-17] MEDS: Dextrose 10%-water IV solution 1,000 ML IV SCH (17:26)
[2019-01-17] MEDS: montelukast 10mg tablet CORPAK SCH (20:21)
[2019-01-18] VITALS (24 sets, daily range): BP systolic 90–126; BP diastolic 53–79
[2019-01-18] MEDS: piperacillin/tazo 3.375gm/50ml 50 ML IV SCH ×3 (01:42→16:06)
[2019-01-18] MEDS: ipratropium/albuterol 3ml nebule NEB SCH ×4 (02:34→23:51)
[2019-01-18] MEDS: diltiazem-NS 100mg/100ml 100 ML IV SCH ×2 (02:45→22:45)
[2019-01-18 05:17] LABS: BASOPHILS % (AUTO) 0.2 % (0-1); EOSINOPHILS # (AUTO) 0.1 X10'3 (0-0.9); HEMATOCRIT 37.9 % (42.0-52.0); HEMOGLOBIN 12.8 g/dl (14.0-17.9); LYMPHOCYTES # (AUTO) 0.6 X10'3 (1.1-4.8); LYMPHOCYTES % (AUTO) 5.5 % (21-51); MEAN CORPUSCULAR HEMOGLOBIN 31.7 PG (27.0-31.0); MEAN CORPUSCULAR HGB CONC 33.8 g/dL (33.0-36.5); MEAN CORPUSCULAR VOLUME 93.7 FL (78-98); MEAN PLATELET VOLUME 7.2 FL (7.4-10.4); MONOCYTES # (AUTO) 1.5 X10'3 (0-0.9); MONOCYTES % (AUTO) 13.3 % (2-12); NEUTROPHILS # (AUTO) 9.2 X10'3 (1.8-7.7); PLATELET COUNT 119 X10'3 (140-440); RED BLOOD COUNT 4.05 X10'6 (4.70-6.10); RED CELL DISTRIBUTION WIDTH 15.4 % (11.5-14.5); WHITE BLOOD COUNT 11.5 X10'3 (4.5-11.0)
[2019-01-18 05:55] LABS: ALANINE AMINOTRANSFERASE 31 U/L (12-78); ALBUMIN 1.9 G/DL (3.4-5.0); ALBUMIN/GLOBULIN RATIO 0.5 (1.1-1.5); ALKALINE PHOSPHATASE 149 IU/L (46-116); ANION GAP 5 (8-16); ASPARTATE AMINO TRANSFERASE 60 U/L (10-37); BILIRUBIN,TOTAL 1.1 MG/DL (0.1-1.0); BLOOD UREA NITROGEN 31 MG/DL (7-18); BUN/CREATININE RATIO 36.5 (5.4-32.0); CALCIUM 8.1 MG/DL (8.5-10.1); CHLORIDE 108 MMOL/L (99-107); CREATININE 0.85 MG/DL (0.60-1.10); GLUCOSE 132 MG/DL (70-104); MAGNESIUM 1.8 MG/DL (1.5-2.4); PHOSPHORUS 2.5 MG/DL (2.3-4.5); POTASSIUM 3.7 MMOL/L (3.5-5.1); SODIUM 144 MMOL/L (135-145); TOTAL CARBON DIOXIDE 31.1 MMOL/L (24-32); TOTAL PROTEIN 6.1 G/DL (6.4-8.2); eGFR > 90 ML/MIN
--- NOTE | 2019-01-18 06:28 | NUR ---
Problems reprioritized. Patient report given, questions answered & plan of care reviewed with Carolina MAXWELL.
[2019-01-18] MEDS: K and/or MAG REPLACEMENT MC SCH (08:00)
[2019-01-18] MEDS: budesonide 0.5mg/2ml UD nebule IH SCH ×2 (08:24→20:00)
[2019-01-18] MEDS: lactobacillus rhamnosus 10,000 MMU CELLS/CAPSULE CORPAK SCH ×2 (09:12→20:00)
[2019-01-18] MEDS: amiodarone 200mg tablet PO SCH (09:13)
[2019-01-18] MEDS: MULTIVIT-MIN/FERROUS GLUCONATE 9 MG/15 ML LIQUID CORPAK SCH (09:13)
[2019-01-18] MEDS: aspirin 81mg tab.chew CORPAK SCH (09:13)
[2019-01-18] MEDS: furosemide 40 MG/4 ML oral solution UD cup CORPAK SCH (09:13)
[2019-01-18] MEDS: thiamine 100mg tablet CORPAK SCH (09:13)
[2019-01-18] MEDS: spironolactone 50 MG tablet CORPAK SCH (09:13)
[2019-01-18] MEDS: pantoprazole 40 MG vial IV SCH (09:21)
[2019-01-18 10:55] LABS: ABG HCO3 29.1 mmol/L (22.0-26.0); ABG OXYGEN SATURATION 91.5 % (95-98); ABG PH (T) 7.551 (7.350-7.450); ABG PO2 (T) 58.3 mmHg (83-108); ALLEN'S TEST Positive; FCOHb 0.5 % (0.5-1.5); FLOW 15 L/min; FMetHb 0.1 % (0.3-1.12); PATIENT TEMPERATURE 37.3
--- NOTE | 2019-01-18 11:03 | NUR ---
Pt. o2 sat dropped to 88% on 4L NC, pt. placed on non rebreather at 15L and still saturating 90%, RT herminio ABG pH 7.551, pco2 34, pao2 58.3, hco3 29.1. showcase makerALISSA Gonzalez informed. RT placed pt. on bipap at 40%. Pt o2 sat now 91%. Pt. temperature increaased from 36.7 this morning to 37.3 celsius. showcase maker informed. This RN disagrees with transfer of pt. to PCU. Per admission discharge rn Deb L. and Dr. Griffiths, pt. will still be transferred to 6090
[2019-01-18] MEDS: vancomycin/NS 1 GM ADD-VANTAGE 250 ML IV SCH ×2 (12:16→23:14)
[2019-01-18] MEDS: enoxaparin 30mg/0.3ml syringe SUBCUT SCH (12:17)
--- NOTE | 2019-01-18 12:22 | NUR ---
Patient in room CICU 2006. I have received report from MELANIA Figueroa and had the opportunity to ask questions and assume patient care.
--- NOTE | 2019-01-18 13:08 | NUR ---
Waiting on RT to transport pt. Pt. HR went in to a-fib RVR rate of 140s. B/P 107/73.
--- NOTE | 2019-01-18 13:22 | NUR ---
Reassessment: Patient's wt is -9.3 kg using bed scales. Wt change likely r/t fluid as pt receiving Lasix and with -7,751 mL fluid balance over the last 3 days and previously with more significant edema. Patient tolerating TF running at goal rate meeting 100% of patient's estimated nutrient needs. Pt s/p f/u BSS 01/[address] recs NPO and reassess given pt continues to be unsafe for PO intake. Pt remains A/O x 1 per physical assessment. LBM 01/17. Will continue to follow closely. Recommendations: 1. Continuous TF via Corpak using Jevity 1.2 Duy at goal rate of 50ml/hr; to provide total volume of 1200 mL/day, 1440 kcal, 968 mL free water, and 67 g protein. 2. Water flushes per MD due to ascites 3. Daily wt; Prealbumin qM/Th 4. Routine Thiamine, Folic acid, and MVI d/t hx of EtOH Addendum: 01/18/19 at [address] Amended: Links added.
[2019-01-18] MEDS: morphine 2 MG/ML inj. syringe IV PRN ×2 (15:00→17:30)
[2019-01-18] MEDS ORDERED: LORazepam 2 mg/ml vial IV PRN (16:35)
[2019-01-18] MEDS ORDERED: LORazepam 2 mg/ml vial ONE (16:38)
[2019-01-18] MEDS: montelukast 10mg tablet CORPAK SCH (21:00)
--- NOTE | 2019-01-18 21:18 | NUR ---
Lactobacillus rhamnosus 100,000 MMU cells/ cap, monteluekast 10mg tab, and rifaximin 200mg tab not administered. Patient CORPAK was removed per family request. DONAVAN Sherman notified
--- NOTE | 2019-01-18 23:04 | NUR ---
Cardizem not administered. Patient is rate controlled and no in Afib
[2019-01-18] MEDS: Dextrose 10%-water IV solution 1,000 ML IV SCH (23:05)
[2019-01-19] VITALS (14 sets, daily range): BP systolic 95–121; BP diastolic 52–76
[2019-01-19] MEDS: piperacillin/tazo 3.375gm/50ml 50 ML IV SCH ×3 (00:42→17:19)
[2019-01-19] MEDS: ipratropium/albuterol 3ml nebule NEB SCH ×6 (03:00→23:10)
[2019-01-19 05:53] LABS: MAGNESIUM 1.9 MG/DL (1.5-2.4); POTASSIUM 3.8 MMOL/L (3.5-5.1)
--- NOTE | 2019-01-19 06:15 | NUR ---
Patient in room CICU 2006. I have received report from ALISSA oRssi and had the opportunity to ask questions and assume patient care.
--- NOTE | 2019-01-19 06:50 | NUR ---
Problems reprioritized. Patient report given, questions answered & plan of care reviewed with La MAXWELL.
[2019-01-19] MEDS: budesonide 0.5mg/2ml UD nebule IH SCH ×2 (07:31→19:11)
[2019-01-19] MEDS: thiamine inj. 100 MG in normal saline 100ml IV soln 100 ML IV SCH (07:45)
[2019-01-19] MEDS: MVI, adult No.4 with vit. K 10 ML in dextrose 5% water 500ml 500 ML IV SCH ×2 (07:46)
[2019-01-19] MEDS: pantoprazole 40 MG vial IV SCH (07:47)
[2019-01-19] MEDS: furosemide 20 MG/2 ML vial IV SCH (07:47)
[2019-01-19] MEDS: enoxaparin 30mg/0.3ml syringe SUBCUT SCH (07:53)
[2019-01-19] MEDS: aspirin 81mg tab.chew CORPAK SCH (08:00)
[2019-01-19] MEDS: amiodarone 200mg tablet PO SCH (08:00)
[2019-01-19] MEDS: K and/or MAG REPLACEMENT MC SCH (08:00)
[2019-01-19] MEDS: spironolactone 50 MG tablet CORPAK SCH (08:00)
[2019-01-19] MEDS: lactobacillus rhamnosus 10,000 MMU CELLS/CAPSULE CORPAK SCH ×2 (08:00→20:00)
--- NOTE | 2019-01-19 11:41 | NUR ---
Patient's son, Oskar, discussed with me the patient's code status and confirmed with me that he is a limited code status, that he does not want him to be on comfort care and at this time he does not wish to resume feeding. He stated that he would like to address this on 01/20/19 with the doctor, "Maybe tomorrow". The patient's son stated that when he agreed to comfort care he was under the impression that the patient would decline quickly once the patient was taken off the BI-pap and he feels that the patient has improved since he was taken off Bi-PAP.
[2019-01-19] MEDS ORDERED: morphine 2 MG/ML inj. syringe IV PRN (13:05)
[2019-01-19] MEDS: vancomycin/NS 1 GM ADD-VANTAGE 250 ML IV SCH ×2 (13:22→23:55)
--- NOTE | 2019-01-19 16:04 | NUR ---
Received report from ALISSA Tovar from the ICU, patient will be going into room 360.
--- NOTE | 2019-01-19 16:04 | NUR ---
Report given to ALISSA Fernandez on Surgical unit.
--- NOTE | 2019-01-19 16:15 | NUR ---
Patient left the CICU in stable condition by hospital bed. Myself and aide took patient to the surgical floor and transferred patient to room bed. Patient tolerated the transfer well. Son came up to the floor with the patient's belongings. CICU room check for any of patient's items and was all clear.
--- NOTE | 2019-01-19 16:40 | NUR ---
Patient arrived to floor from ICU with chest tube to H20 seal, VSS stable at BP 121/59, HR 69, RR 20, 2 liters NC O2, Oxygen saturation 97%. No distress noted and son juan c at the bedside.
--- NOTE | 2019-01-19 18:37 | NUR ---
Problems reprioritized. Patient report given, questions answered & plan of care reviewed with ALISSA Judge.
[2019-01-19] MEDS: montelukast 10mg tablet CORPAK SCH (20:31)
[2019-01-19] MEDS: Dextrose 10%-water IV solution 1,000 ML IV SCH (23:56)
[2019-01-20] VITALS: BP 117/69
[2019-01-20] MEDS: piperacillin/tazo 3.375gm/50ml 50 ML IV SCH ×3 (01:59→19:42)
[2019-01-20] MEDS: ipratropium/albuterol 3ml nebule NEB SCH ×6 (03:00→23:53)
[2019-01-20 04:59] LABS: MAGNESIUM 2.3 MG/DL (1.5-2.4); PHOSPHORUS 3.7 MG/DL (2.3-4.5); POTASSIUM 3.7 MMOL/L (3.5-5.1); PREALBUMIN 11.7 MG/DL (19-36)
--- NOTE | 2019-01-20 07:17 | NUR ---
Patient in room [facility] 360. I have received report from Nu MAXWELL and had the opportunity to ask questions and assume patient care.
[2019-01-20 08:00] VITALS: BP 123/77
[2019-01-20] MEDS: spironolactone 50 MG tablet CORPAK SCH (08:00)
[2019-01-20] MEDS: aspirin 81mg tab.chew CORPAK SCH (08:00)
[2019-01-20] MEDS: lactobacillus rhamnosus 10,000 MMU CELLS/CAPSULE CORPAK SCH ×2 (08:00→20:00)
[2019-01-20] MEDS: MVI, adult No.4 with vit. K 10 ML in dextrose 5% water 500ml 500 ML IV SCH ×2 (08:00)
[2019-01-20] MEDS: amiodarone 200mg tablet PO SCH (08:00)
[2019-01-20] MEDS: budesonide 0.5mg/2ml UD nebule IH SCH ×2 (08:17→19:50)
[2019-01-20] MEDS: pantoprazole 40 MG vial IV SCH (09:32)
[2019-01-20] MEDS: thiamine inj. 100 MG in normal saline 100ml IV soln 100 ML IV SCH (09:32)
[2019-01-20] MEDS: furosemide 20 MG/2 ML vial IV SCH (09:32)
[2019-01-20] MEDS: enoxaparin 30mg/0.3ml syringe SUBCUT SCH (09:33)
--- NOTE | 2019-01-20 10:45 | NUR ---
10:35 Hung called and pt is on A-Fiv Addendum: 01/20/19 at 1116 by Nancy Grimes RN 10:35Hung called and pt is on A-Fib 120-130's. Checked pt and pt is asymptomatic. O2 97, RR19, 109/[address]imble called to notified him him of A-Fib event. left message.
[2019-01-20 11:00] VITALS: BP 109/78
[2019-01-20] MEDS: vancomycin/NS 1 GM ADD-VANTAGE 250 ML IV SCH ×2 (11:00→23:15)
--- NOTE | 2019-01-20 16:00 | NUR ---
Notified Dr Trimble that son, Oskar, was in in the room with pt and wanted to speak to him about pt's care. Dr Trimble answered and stated he was busy, "on a cardiac arrest code, I don't have time to talk or come see him". and then hung up.
[2019-01-20 18:00] VITALS: BP 108/64
--- NOTE | 2019-01-20 19:11 | NUR ---
Problems reprioritized. Patient report given, questions answered & plan of care reviewed with Tarun MAXWELL.
--- NOTE | 2019-01-20 19:12 | NUR ---
Patient in room [facility] 360. I have received report from ALISSA Cruz and had the opportunity to ask questions and assume patient care.
[2019-01-20] MEDS: montelukast 10mg tablet CORPAK SCH (21:00)
[2019-01-20 23:52] VITALS: BP 118/59
[2019-01-21] MEDS: piperacillin/tazo 3.375gm/50ml 50 ML IV SCH ×2 (01:00→08:00)
[2019-01-21] MEDS: ipratropium/albuterol 3ml nebule NEB SCH ×6 (03:37→22:56)
[2019-01-21] MEDS: Dextrose 10%-water IV solution 1,000 ML IV SCH (05:21)
[2019-01-21 06:10] LABS: MAGNESIUM 2.2 MG/DL (1.5-2.4); PHOSPHORUS 3.9 MG/DL (2.3-4.5); POTASSIUM 3.6 MMOL/L (3.5-5.1)
--- NOTE | 2019-01-21 06:46 | NUR ---
Problems reprioritized. Patient report given, questions answered & plan of care reviewed with ALISSA Cruz.
[2019-01-21] MEDS: budesonide 0.5mg/2ml UD nebule IH SCH ×2 (07:33→19:19)
[2019-01-21] MEDS: spironolactone 50 MG tablet CORPAK SCH (08:00)
[2019-01-21] MEDS: enoxaparin 30mg/0.3ml syringe SUBCUT SCH (08:00)
[2019-01-21] MEDS: amiodarone 200mg tablet PO SCH (08:00)
[2019-01-21] MEDS: aspirin 81mg tab.chew CORPAK SCH (08:00)
[2019-01-21] MEDS: lactobacillus rhamnosus 10,000 MMU CELLS/CAPSULE CORPAK SCH (08:00)
[2019-01-21] MEDS: thiamine inj. 100 MG in normal saline 100ml IV soln 100 ML IV SCH (09:13)
[2019-01-21] MEDS: vancomycin/NS 1 GM ADD-VANTAGE 250 ML IV SCH (11:04)
[2019-01-21] MEDS: furosemide 20 MG/2 ML vial IV SCH (12:19)
[2019-01-21] MEDS: pantoprazole 40 MG vial IV SCH (12:19)
[2019-01-21] MEDS: MVI, adult No.4 with vit. K 10 ML in dextrose 5% water 500ml 500 ML IV SCH ×2 (12:56)
--- NOTE | 2019-01-21 14:52 | NUR ---
Reassessment: Pt has been transferred to the floors and Corpak has been removed and to be NPO per MD order. Pt now 3 days NPO. Pt s/p BSS this morning with ST recs NPO with alternative nutrition d/t pt unsafe for PO intake. Pt with a delay in swallow reflex, with trouble forming bolus and triggering swallow, and with difficulty coordinating breathing and swallowing per ST notes. Pt with active TF diet order, d/w RN to change diet to NPO per MD order. Per RN patient's POA would like to have a Corpak placed, pending further discussion with MD. TF recommendations below remain in place for if pt to receive nutrition support. Pt receiving D10 at 30 mL/hr providing 245 kcal/day only meeting 18% EEN and 0% EPN. Pt continues with severe weakness and noted to be visibly cachectic meeting criteria for malnutrition, MD notified. Malnutrition education with ONS coupons not appropriate given patient's mental status and inability for safe PO at this time. LBM 11/3 with hypoactive bowel sounds per physical assessment. No bowel care at this time given NPO status. Will continue to follow closely and make recommendations appropriate that are in line with patient's plan of care. Recommendations: 1. If to resume TF, continuous TF using Jevity 1.2 Duy at goal rate of 50ml/hr; to provide total volume of 1200 mL/day, 1440 kcal, 968 mL free water, and 67 g protein. 2. If above, water flushes per MD due to ascites 3. If above, daily wt; Prealbumin qM/Th 4. Routine Thiamine, Folic acid, and MVI d/t hx of EtOH 5. PO diet advancement to heart healthy IF deemed safe for PO intake per ST recs Addendum: 01/21/19 at [address] Amended: Links added.
--- NOTE | 2019-01-21 15:32 | NUR ---
Dr Trimble spoke to pt's son Oskar regarding putting pt in hospice and bringing him home. Son agreed to do so as long as we help him with transportation because they live in [place]. Dr agreed to help out with transportation and making arrangements for hospice. Dr. Trimble to discharge pt.
[2019-01-21 18:00] VITALS: BP 84/56
--- NOTE | 2019-01-21 18:20 | NUR ---
Problems reprioritized. Patient report given, questions answered & plan of care reviewed with Tarun MAXWELL.
--- NOTE | 2019-01-21 18:21 | NUR ---
Patient in room [facility] 360. I have received report from ALISSA Cruz and had the opportunity to ask questions and assume patient care.
[2019-01-21 18:56] VITALS: BP 95/73
--- NOTE | 2019-01-21 23:27 | NUR ---
Pt's O2 sats have been dropping. March was contacted, and though we cannot do bipap, she ok'd a nonrebreather mask for him. Presently he is on 15L sating 80.
[2019-01-22] VITALS: BP 95/55
[2019-01-22] MEDS: ipratropium/albuterol 3ml nebule NEB SCH ×6 (03:00→23:00)
--- NOTE | 2019-01-22 06:59 | NUR ---
Problems reprioritized. Patient report given, questions answered & plan of care reviewed with ALISSA Peterson.
[2019-01-22 07:00] VITALS: BP 87/56
--- NOTE | 2019-01-22 07:05 | NUR ---
Patient in room [facility] 360. I have received report from AYSE MAXWELL and had the opportunity to ask questions and assume patient care.
[2019-01-22] MEDS: pantoprazole 40 MG vial IV SCH (08:09)
[2019-01-22 11:00] VITALS: BP 100/79
[2019-01-22] MEDS: budesonide 0.5mg/2ml UD nebule IH SCH ×2 (11:08→20:00)
--- NOTE | 2019-01-22 15:37 | NUR ---
patient is 82-86% on non rebreather, seen by Dr adames. no new orders chest tube putting out 125mls yellowish fluid. 2 hrly turns done. Oral care given. patient has eyes open tracking staff, but unable to communicate. Does not appear to be in pain. Son called message left asking son to call hospital. Awaiting reply.
[2019-01-22] MEDS: LORazepam 2 mg/ml vial IV PRN ×2 (17:46→21:23)
[2019-01-22] MEDS: Dextrose 10%-water IV solution 1,000 ML IV SCH (17:59)
--- NOTE | 2019-01-22 18:06 | NUR ---
patients son came and appeared very upset when he observed his father. Dr Griffiths called and son spoke with this doctor. Ativan given to patient. son requested oxygen be removed from patient. patient o2sat 80%. All cares given. patient does not appear to be in pain. son at bedside at time of report.patient had appeared restful during shift.
--- NOTE | 2019-01-22 18:49 | NUR ---
Problems reprioritized. Patient report given, questions answered & plan of care reviewed with jair morin.
--- NOTE | 2019-01-22 19:03 | NUR ---
Patient in room [facility] 360. I have received report from Kristen MAXWELL and had the opportunity to ask questions and assume patient care.
[2019-01-22 20:39] VITALS: BP 85/61
[2019-01-23] VITALS: BP 87/66
[2019-01-23] MEDS: LORazepam 2 mg/ml vial IV PRN (00:05)
--- NOTE | 2019-01-23 04:14 | NUR ---
Pt at 0112, son was at bedside. Confirmed with vitals and tele strip. March Van Over of the critical care group was notified and put in orders for nurse to pronounce. [facility] was contacted, postmortem care was performed and [facility] [employer] [facility] [place] was notified. [facility] arrived at 0350, all paperwork completed and body was transferred.
== END 2019-01-23 01:12 | disposition expired | DRG 193 ==
LOC: ER 21:13 → ED HOLD 23:09 → ORTHO 4S 01-13 02:40 → PCU 3S 01-13 11:58 → CICU 2S 01-15 13:15 → SUR 3N 01-19 16:24
PROVIDERS: ADMIT Internal Medicine; ATTEND Internal Medicine Critical Care Medicine
PROC: 5A09357 Assistance with Respiratory Ventilation, Less than 24 Consecutive Hours, Continuous Positive Airway Pressure (ICD-10-PCS; principal; 2019-01-12)
PROC: 0W993ZZ Drainage of Right Pleural Cavity, Percutaneous Approach (ICD-10-PCS; 2019-01-13)
PROC: 5A09357 Assistance with Respiratory Ventilation, Less than 24 Consecutive Hours, Continuous Positive Airway Pressure (ICD-10-PCS; 2019-01-15)
PROC: 0W9930Z Drainage of Right Pleural Cavity with Drainage Device, Percutaneous Approach (ICD-10-PCS; 2019-01-16)
PROC: BW241ZZ Computerized Tomography (CT Scan) of Chest and Abdomen using Low Osmolar Contrast (ICD-10-PCS; 2019-01-17)
PROC: 5A09357 Assistance with Respiratory Ventilation, Less than 24 Consecutive Hours, Continuous Positive Airway Pressure (ICD-10-PCS; 2019-01-18)
DX: J18.9 Pneumonia, unspecified organism (principal); J86.9 Pyothorax without fistula; J96.00 Acute respiratory failure, unspecified whether with hypoxia or hypercapnia; R18.8 Other ascites; R64 Cachexia; Z68.1 Body mass index [BMI] 19.9 or less, adult; J91.8 Pleural effusion in other conditions classified elsewhere; I11.0 Hypertensive heart disease with heart failure; K74.60 Unspecified cirrhosis of liver; D69.6 Thrombocytopenia, unspecified; F03.90 Unspecified dementia, unspecified severity, without behavioral disturbance, psychotic disturbance, mood disturbance, and anxiety; I95.9 Hypotension, unspecified; R00.0 Tachycardia, unspecified; F17.210 Nicotine dependence, cigarettes, uncomplicated; K72.90 Hepatic failure, unspecified without coma; I48.0 Paroxysmal atrial fibrillation; I50.9 Heart failure, unspecified; J43.9 Emphysema, unspecified; Z51.5 Encounter for palliative care; Z66 Do not resuscitate; Z79.899 Other long term (current) drug therapy; Z79.82 Long term (current) use of aspirin
CPT/HCPCS: 32555; 32557; 36415; 36600; 70450; 71045; 71250; 74018; 76705; 76937; 80053; 80202; 82140; 82803; 82945; 82948; 83615; 83735; 83880; 84100; 84132; 84134; 84145; 84157; 85018; 85025; 85610; 85730; 87070; 87081; 88108; 88305; 89051; 92508; 92616; 93005; 93306; 94640; 94660; 94760; 96365; 96366; 96367; 96368; 96375; 99285; C9113; G0378; J0696; J1160; J1650; J1940; J2060; J2270; J2543; J3370; J3411; J3490; J7050; J7060; J7626; Q9967